=== PATIENT | female | born 1955 | race Caucasian/White ===

== ENCOUNTER → 2017-03-18 | Outpatient (CLI) | payer OTHER ==
[~2017-03-18] MED LIST: ARAVA20 MG PO; HYDROXYCHLOROQ200 M1 PO; MULTIVITAMINS PO; SYNTHROID PO
== END ==
LOC: NUC 07:51
DX: R00.2 Palpitations (principal)

== ENCOUNTER → 2019-11-30 | Outpatient (CLI) | payer BC | LOC: SJCVCIMAG 09-27 09:41 | PROVIDERS: ATTEND Internal Medicine Cardiovascular Disease | DX: I34.0 Nonrheumatic mitral (valve) insufficiency (principal); I47.1 Supraventricular tachycardia; Z79.899 Other long term (current) drug therapy ==

== ENCOUNTER → 2021-03-26 | Outpatient (CLI) | payer OTHER, MEDICARE | LOC: SJCVC 10:08 | PROVIDERS: ATTEND Internal Medicine Cardiovascular Disease | DX: I47.1 Supraventricular tachycardia (principal); K21.9 Gastro-esophageal reflux disease without esophagitis; E78.5 Hyperlipidemia, unspecified; G43.909 Migraine, unspecified, not intractable, without status migrainosus; Z79.899 Other long term (current) drug therapy; Z88.5 Allergy status to narcotic agent; Z72.89 Other problems related to lifestyle ==